=== PATIENT | male | born 1955 | race Caucasian/White ===

== ENCOUNTER 2017-01-29 13:12 | Day surgery (SDC) | payer OTHER ==
[~2017-01-29] VITALS: Ht 165.1 cm; Wt 74.7 kg
[2017-01-29 14:19] VITALS: Ht 165.1 cm; Wt 74.7 kg
[2017-01-29 14:31] VITALS: BP 128/69; PULSE 59; RESP 18
[2017-01-29] MEDS ORDERED: MIDAZOLAM 1 MG/ML 2 ML INJ ONE ×2 (14:57)
[2017-01-29] MEDS ORDERED: FENTAnyl 50 MCG/ML VIAL ONE (14:57)
[2017-01-29 15:08] VITALS: BP 108/61; RESP 20
--- NOTE | 2017-01-29 15:45 | GILP ---
DATE OF PROCEDURE: 01/29/2017 PREOPERATIVE DIAGNOSIS: Screening colonoscopy. POSTOPERATIVE DIAGNOSIS: Normal colon. DESCRIPTION OF PROCEDURE: After obtaining informed consent, the patient was sedated, monitored on oximetry, EKG, blood pressure. He received a total of 100 mcg of fentanyl and 4 mg IV Versed. Rectal exam done. Then I advanced an Olympus video colonoscope all the way to cecum. Cecum, ascending colon, transverse colon, descending colon, sigmoid colon, and rectum essentially normal. Upon removal of the scope, the patient had no complications. FINAL IMPRESSION: Normal study. RECOMMENDATION: Continue with present medications. Follow up with primary Domitila Repeat colonoscopy in 10 years, and he will follow up with me p.r.n. Dictated By: MARISOL CHRISTOPHER/MARCELA Conf#: [id number] DID#: [id number] CC: MARISOL BERNARD M.D.;*EndCC* MTDD
== END 2017-01-29 16:20 | disposition home or self-care (01) ==
LOC: GIL 13:12
PROVIDERS: ATTEND Internal Medicine
DX: Z12.11 Encounter for screening for malignant neoplasm of colon (principal)
CPT/HCPCS: 45378; J2250; J3010